=== PATIENT | male | born 1985 | race Caucasian/White ===

== ENCOUNTER 2019-01-24 21:52 | Emergency (ER) | payer OTHER ==
[2019-01-24 22:05] VITALS: BP 116/77
--- NOTE | 2019-01-24 22:09 | EDPHY ---
H & P Stated Complaint: L 5TH FINGER LACERATION Time Seen by Provider: 01/24/19 22:06 HPI/ROS: HPI: This is a 33-year-old male who presents with Chief Complaint: Left little finger laceration Location: Left little finger Quality: Laceration Duration: Prior to arrival Signs and Symptoms: + bleeding, no radiation, no numbness, no weakness, no tingling, no incontinence, no decreased range of motion, no swelling, + pain, no fever Timing: Acute Severity: Mild Context: Patient is right-hand dominant, washing porcelain bowl and broke it, cutting his left 5th finger. Reports immediate, constant pain at time of injury and now only mild pain. Pt reports tetanus up to date. Noted significant bleeding that stopped with direct pressure. Denies radiation, weakness, decreased range of motion. Modifying Factors: Direct pressure Comment: ROS: A comprehensive 10 system review of systems is otherwise negative aside from elements mentioned in the history of present illness. MEDICAL/SURGICAL/SOCIAL HISTORY: Medical history: Generally healthy. Does not take any regular medications. Surgical history: Denies Social history: Employed. Nonsmoker. CONSTITUTIONAL: Well-developed, well-nourished adult white male, awake and alert, no obvious distress HEENT: Atraumatic and normocephalic, PERRL, EOMI. Nares patent; no rhinorrhea; no nasal mucosal edema. Tympanic membranes clear. Oropharynx clear, no exudate and moist pink mucosa. Airway patent. No lymphadenopathy. No meningismus. Cardiovascular: Normal S1/S2, regular rate, regular rhythm, without murmur rub or gallop. PULMONARY/CHEST: Symmetrical and nontender. Clear to auscultation bilaterally. Good air movement. No accessory muscle usage. ABDOMEN: Soft, nondistended, nontender, no rebound, no guarding, no peritoneal signs, no masses or organomegaly. No CVAT. EXTREMITIES: 2/2 rate pulses, barrel filler strength 5/5, left little finger shows superficial, v-shaped, 0.5 cm laceration on left little finger sparing the joint ; no nail involvement. DI P/PIP/MCP joints have good flexion/extension with light touch sensation intact. no clubbing, no cyanosis or edema. NEUROLOGICAL: no focal neuro deficits. GCS 15. SKIN: Warm and dry, no erythema. no rash. Good capillary refill. Source: Patient Exam Limitations: No limitations - Personal History Current Tetanus/Diphtheria Vaccine: Yes Current Tetanus Diphtheria and Acellular Pertussis (TDAP): Yes - Medical/Surgical History Hx Asthma: No Hx Chronic Respiratory Disease: No Hx Diabetes: No Hx Cardiac Disease: No Hx Renal Disease: No Hx Cirrhosis: No Hx Alcoholism: No Hx HIV/AIDS: No Hx Splenectomy or Spleen Trauma: No Other PMH: DENIES - Social History Smoking Status: Never smoked Constitutional: Initial Vital Signs Temperature (C) 36.8 C 01/24/19 22:03 Heart Rate 84 01/24/19 22:03 Respiratory Rate 18 01/24/19 22:03 Blood Pressure 116/77 01/24/19 22:03 O2 Sat (%) 96 01/24/19 22:03 O2 Delivery Mode Room Air Allergies/Adverse Reactions: cefaclor [From Ceclor] Allergy (Verified 01/24/19 22:03) Home Medications: Medication Instructions Recorded NK [No Known Home Meds] 01/24/19 Medical Decision Making Procedures: Procedure: Laceration repair. Verbal consent was obtained from the patient. The 0.5 cm, v-shaped, simple, superficial laceration on the left little finger was anesthetized in the usual fashion using 2 cc of lidocaine without epinephrine. The wound was irrigated, draped and explored to its base with a gloved finger. There were no deep structures involved. No tendon injury was identified. The wound was repaired with Dermabond. The procedure was performed by myself. ED Course/Re-evaluation: Vital signs reviewed and stable upon arrival. Tetanus is up-to-date. Local anesthesia provided with 3 cc 1% lidocaine without epinephrine Copiously irrigated No indication for x-ray imaging Superficial v-shaped simple laceration closed with Dermabond with good hemostasis Nonocclusive dressing applied Verbal and written wound care instructions provided No signs of neurovascular compromise/tenting of skin/compartment syndrome/ extremities and joints examined above and below area of concern and are neurovascularly intact/tendon injury. This patient was seen under the supervision of my secondary supervising physician. I evaluated and cared for this patient independently. Differential Diagnosis: Differential diagnosis includes but is not limited to foreign body, laceration, nerve injury, tendon injury, avulsion, nail injury. Departure - Departure Disposition: Home, Routine, Self-Care Clinical Impression: Laceration of left little finger without foreign body without damage to nail Qualifiers: Encounter type: initial encounter Qualified Code(s): S61.217A - Laceration without foreign body of left little finger without damage to nail, initial encounter Condition: Good Instructions: Finger Laceration (ED), Skin Adhesive Care (ED) Additional Instructions: Keep the dressing dry and in place for 48 hours. After 48 hours, you may remove the dressing; wash the site daily with mild soap and water; then pat dry. Allow the skin glue to slowly dissolve on its own in a few days. Do not soak in a bathtub or go swimming until fully healed. Take Tylenol 650 mg every 4 hours and/or Ibuprofen 600 mg every 8 hours with food as needed for pain. Return to the ER immediately if you experience redness, red streaks, have fevers /chills, flu like symptoms, limited range of motion, or any other symptoms that concern you. Referrals: Ryne Garcia MD [Medical Doctor] - Follow Up Only If Needed
[2019-01-24] MEDS ORDERED: SKIN ADHESIVE (DERMABOND) 1 EACH TP ONE ×2 (22:26→22:29)
== END 2019-01-24 22:40 | disposition home or self-care (01) ==
PROC: 0HQGXZZ Repair Left Hand Skin, External Approach (ICD-10-PCS; principal; 2019-01-24)
DX: S61.217A Laceration without foreign body of left little finger without damage to nail, initial encounter (principal); W26.8XXA Contact with other sharp object(s), not elsewhere classified, initial encounter; Y93.G1 Activity, food preparation and clean up; Y92.000 Kitchen of unspecified non-institutional (private) residence as the place of occurrence of the external cause